=== PATIENT | male | born 1985 | race Caucasian/White ===

== ENCOUNTER 2018-01-15 20:50 | Emergency (ER) | payer MEDICAID, OTHER ==
[~2018-01-15] VITALS: Ht 177.8 cm; Wt 95.0 kg
[~2018-01-15 20:50] MED LIST: CHLO25CA10 PO; CLON0.2T PO; CYCL-1 PO; HYDR-3965 PO; HYDR-569 PO; HYDR1TAB PO; IBUP-1984 PO; LIDO30CR23 TOP; ONDA4TAB12 PO; ONDA8TAB6 PO; ONDA8TAB9 PO; PANT-47 PO; PENI500T2 PO; POLY119P2 PO; TRAM50TA2 PO
[2018-01-15] MEDS ORDERED: hydrOXYzine 25 MG tablet PO ONE (21:10)
[2018-01-15] MEDS ORDERED: HYDR-3686 PO (21:13)
[2018-01-15 21:32] VITALS: BP 140/66
== END 2018-01-15 21:33 | disposition home or self-care (01) ==
LOC: ER 20:51
DX: F41.9 Anxiety disorder, unspecified (principal); F32.9 Major depressive disorder, single episode, unspecified; I10 Essential (primary) hypertension; K21.9 Gastro-esophageal reflux disease without esophagitis
CPT/HCPCS: 99284; Q0177

== ENCOUNTER 2018-02-08 08:46 | Emergency (ER) | payer MEDICAID ==
[~2018-02-08] VITALS: Ht 177.8 cm; Wt 96.0 kg
[2018-02-08] MEDS ORDERED: CHLO473M3 PO (09:18)
[2018-02-08] MEDS ORDERED: AMOX500C2 PO (09:18)
[2018-02-08] MEDS ORDERED: IBUP-1986 PO (09:18)
[2018-02-08 09:34] VITALS: BP 130/85
[2018-02-10] MEDS ORDERED: NICO-687 TOP (23:40)
[2018-02-10] MEDS ORDERED: CLIN150C8 PO (23:40)
== END 2018-02-08 09:36 | disposition home or self-care (01) ==
LOC: ER 08:46
DX: K04.7 Periapical abscess without sinus (principal); G89.29 Other chronic pain; I10 Essential (primary) hypertension; K21.9 Gastro-esophageal reflux disease without esophagitis; Z79.899 Other long term (current) drug therapy; Z56.0 Unemployment, unspecified
CPT/HCPCS: 99283

== ENCOUNTER 2018-02-20 08:19 | Emergency (ER) | payer MEDICAID ==
[~2018-02-20] VITALS: Ht 177.8 cm; Wt 99.1 kg
[~2018-02-20 08:19] MED LIST changes: +CHLO473M3 PO; +CLIN150C8 PO; +IBUP-1986 PO; +NICO-687 TOP
[2018-02-20 08:24] VITALS: BP 146/86
== END 2018-02-20 09:53 | disposition home or self-care (01) ==
LOC: ER 08:19
DX: S61.211A Laceration without foreign body of left index finger without damage to nail, initial encounter (principal); I10 Essential (primary) hypertension; K21.9 Gastro-esophageal reflux disease without esophagitis; G89.29 Other chronic pain; Z79.899 Other long term (current) drug therapy; Z56.0 Unemployment, unspecified; W26.0XXA Contact with knife, initial encounter; Y93.G9 Activity, other involving cooking and grilling; Y92.89 Other specified places as the place of occurrence of the external cause; Y99.8 Other external cause status
CPT/HCPCS: 12001; 99283

== ENCOUNTER 2018-03-03 13:13 | Emergency (ER) | payer MEDICAID ==
[~2018-03-03] VITALS: Ht 177.8 cm; Wt 100.0 kg
[2018-03-03 14:19] VITALS: BP 125/89
== END 2018-03-03 14:20 | disposition home or self-care (01) ==
LOC: ER 13:14
DX: S39.012A Strain of muscle, fascia and tendon of lower back, initial encounter (principal); I10 Essential (primary) hypertension; K21.9 Gastro-esophageal reflux disease without esophagitis; Z98.890 Other specified postprocedural states; Z56.0 Unemployment, unspecified; Z79.2 Long term (current) use of antibiotics; Z79.899 Other long term (current) drug therapy; X58.XXXA Exposure to other specified factors, initial encounter; Y93.89 Activity, other specified; Y92.89 Other specified places as the place of occurrence of the external cause; Y99.8 Other external cause status
CPT/HCPCS: 99281

== ENCOUNTER 2018-03-10 21:04 | Emergency (ER) | payer MEDICAID ==
[~2018-03-10] VITALS: Ht 177.8 cm; Wt 98.7 kg
[2018-03-10 21:10] VITALS: BP 138/72
[2018-03-10] MEDS ORDERED: CLIN150C8 PO (21:23)
== END 2018-03-10 21:32 | disposition home or self-care (01) ==
LOC: ER 21:05
DX: K08.89 Other specified disorders of teeth and supporting structures (principal); I10 Essential (primary) hypertension; K21.9 Gastro-esophageal reflux disease without esophagitis; G89.29 Other chronic pain; Z79.899 Other long term (current) drug therapy; Z56.0 Unemployment, unspecified
CPT/HCPCS: 99283

== ENCOUNTER 2018-03-16 23:07 | Emergency (ER) | payer MEDICAID ==
[~2018-03-16] VITALS: Ht 177.8 cm; Wt 100.0 kg
[~2018-03-16 23:07] MED LIST changes: -NICO-687 TOP
[2018-03-16 23:14] VITALS: BP 138/88
[2018-03-16] MEDS ORDERED: dicyclomine 10 MG capsule PO ONE (23:30)
[2018-03-16] MEDS ORDERED: ondansetron 4mg rapidly disintigrating tab PO ONE (23:30)
[2018-03-17 00:15] LABS: BASOPHILS % (AUTO) 0.5 % (0-1); EOSINOPHILS # (AUTO) 0.4 X10'3 (0-0.9); EOSINOPHILS % (AUTO) 4.2 % (0-6); HEMATOCRIT 37.6 % (42.0-52.0); HEMOGLOBIN 13.2 g/dl (14.0-17.9); LYMPHOCYTES # (AUTO) 2.9 X10'3 (1.1-4.8); LYMPHOCYTES % (AUTO) 28.8 % (21-51); MEAN CORPUSCULAR HEMOGLOBIN 32.5 PG (27.0-31.0); MEAN CORPUSCULAR HGB CONC 35.1 % (33.0-36.5); MEAN CORPUSCULAR VOLUME 92.6 FL (78-98); MEAN PLATELET VOLUME 8.3 FL (7.4-10.4); MONOCYTES # (AUTO) 0.5 X10'3 (0-0.9); MONOCYTES % (AUTO) 4.8 % (2-12); NEUTROPHILS # (AUTO) 6.2 X10'3 (1.8-7.7); NEUTROPHILS % (AUTO) 61.7 % (42-75); PLATELET COUNT 313 X10'3 (140-440); RED BLOOD COUNT 4.07 X10'6 (4.70-6.10); RED CELL DISTRIBUTION WIDTH 12.9 % (11.5-14.5)
[2018-03-17 00:29] LABS: ALANINE AMINOTRANSFERASE 30 U/L (12-78); ALBUMIN 3.9 G/DL (3.4-5.0); ALBUMIN/GLOBULIN RATIO 1.1 (1.1-1.5); ALKALINE PHOSPHATASE 65 IU/L (46-116); ANION GAP 12 (8-16); ASPARTATE AMINO TRANSFERASE 15 U/L (10-37); BILIRUBIN,TOTAL 0.2 MG/DL (0.1-1.0); BLOOD UREA NITROGEN 15 MG/DL (7-18); BUN/CREATININE RATIO 16.9 (5.4-32.0); CALCIUM 8.8 MG/DL (8.5-10.1); CHLORIDE 103 MMOL/L (99-107); CREATININE 0.89 MG/DL (0.60-1.10); GLUCOSE 111 MG/DL (70-104); POTASSIUM 3.6 MMOL/L (3.5-5.1); SODIUM 138 MMOL/L (135-145); TOTAL CARBON DIOXIDE 22.6 MMOL/L (24-32); TOTAL PROTEIN 7.4 G/DL (6.4-8.2); eGFR > 90 ML/MIN
[2018-03-17] MEDS ORDERED: DICY10CA88 PO (00:30)
[2018-03-17] MEDS ORDERED: ONDA4TAB12 PO (00:30)
== END 2018-03-17 00:42 | disposition home or self-care (01) ==
LOC: ER 23:08
DX: R11.2 Nausea with vomiting, unspecified (principal); R10.13 Epigastric pain; R19.7 Diarrhea, unspecified; I10 Essential (primary) hypertension; G89.29 Other chronic pain; K21.9 Gastro-esophageal reflux disease without esophagitis; F17.210 Nicotine dependence, cigarettes, uncomplicated; Z79.899 Other long term (current) drug therapy; Z56.0 Unemployment, unspecified
CPT/HCPCS: 36415; 80053; 85025; 99284

== ENCOUNTER 2018-04-08 13:03 | Emergency (ER) | payer MEDICAID ==
[~2018-04-08] VITALS: Ht 177.8 cm; Wt 95.5 kg
[~2018-04-08 13:03] MED LIST changes: +DICY10CA88 PO
[2018-04-08 13:05] VITALS: BP 135/75
[2018-04-08] MEDS ORDERED: benoxinate/fluorescein ophth drops 5ml bottle RIGHTEYE ONE (13:20)
[2018-04-08] MEDS ORDERED: PROPARACAINE/FLUORESCEIN ophthalmic drops 5ml bottle RIGHTEYE ONE (13:25)
[2018-04-08] MEDS ORDERED: erythromycin ophthalmic ointment 1gm tube LEFTEYE ONE (14:05)
== END 2018-04-08 14:12 | disposition home or self-care (01) ==
LOC: ER 13:03
DX: T15.02XA Foreign body in cornea, left eye, initial encounter (principal); I10 Essential (primary) hypertension; K21.9 Gastro-esophageal reflux disease without esophagitis; G89.29 Other chronic pain; M54.9 Dorsalgia, unspecified; X58.XXXA Exposure to other specified factors, initial encounter; Y93.89 Activity, other specified; Y92.89 Other specified places as the place of occurrence of the external cause; Y99.8 Other external cause status
CPT/HCPCS: 65220; 99284

== ENCOUNTER 2018-09-27 13:12 | Inpatient (IN) | payer MEDICAID | END 2018-09-27 19:10 | disposition left against medical advice (07) | LOC: ER 13:12 → ED HOLD 17:05 ==

== ENCOUNTER 2025-06-19 16:19 | Emergency (ER) | payer MEDICAID ==
[~2025-06-19] VITALS: Ht 188 cm; Wt 95.5 kg
[~2025-06-19 16:19] MED LIST changes: -CHLO25CA10 PO; -CHLO473M3 PO; -CLIN150C8 PO; -CLON0.2T PO; -CYCL-1 PO; -DICY10CA88 PO; -HYDR-3965 PO; -HYDR-569 PO; -HYDR1TAB PO; -IBUP-1984 PO; -IBUP-1986 PO; -LIDO30CR23 TOP; +NO HOME MEDS; -ONDA4TAB12 PO; -ONDA8TAB6 PO; -ONDA8TAB9 PO; -PANT-47 PO; -PENI500T2 PO; -POLY119P2 PO; -TRAM50TA2 PO
[2025-06-19 16:35] VITALS: BP 141/94; PULSE 96; RESP 18; TEMP 97.2; O2SAT 99
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
== END 2025-06-19 17:21 | disposition left against medical advice (07) ==
LOC: ER 16:19
DX: F15.10 Other stimulant abuse, uncomplicated (principal); G89.29 Other chronic pain; F17.210 Nicotine dependence, cigarettes, uncomplicated; I10 Essential (primary) hypertension; K21.9 Gastro-esophageal reflux disease without esophagitis; F32.A Depression, unspecified; Z88.5 Allergy status to narcotic agent; Z98.890 Other specified postprocedural states; Z56.0 Unemployment, unspecified
CPT/HCPCS: 99283